=== PATIENT | female | born 1955 | race Asian ===

== ENCOUNTER 2017-07-15 23:32 | Emergency (ER) | payer BC ==
[2017-07-16 00:52] VITALS: BP 143/93
== END 2017-07-16 00:52 | disposition home or self-care (01) ==
LOC: ED 23:32
DX: T46.6X1A Poisoning by antihyperlipidemic and antiarteriosclerotic drugs, accidental (unintentional), initial encounter (principal); E78.00 Pure hypercholesterolemia, unspecified; Y92.89 Other specified places as the place of occurrence of the external cause; Z88.0 Allergy status to penicillin; Z79.899 Other long term (current) drug therapy